=== PATIENT | male | born 1940 | race Caucasian/White ===

== ENCOUNTER 2016-06-15 00:11 | Emergency (ER) | payer MEDICARE, MEDICAID ==
[~2016-06-15 00:11] MED LIST: *MAYHAVE; *NEBULIZER; /ADVA50050; /ATOR40TA; /LANS30GR; /SUCR1TA; ACTO45TA; ACTOS30 PO; ACTOS45 PO; ADV500INH INH; ADVA115A INH; ADVAIR200 INHALATION; ADVAIR500; ALBOTERNEB INHALATION; ALBU/IPRAT INHALATION; ALBU83IN INH; ALBUT0.05 INHALATION; ALBUTEROL INHALATION; ALCOHOL TOP; ALDA25TA2 PO; ALTA1CAP2 PO; AMAR1TAB PO; AMBI10TA PO; AMBIEN10 PO; AMBIEN5 PO; AMBIENCR12 PO; AMLO10TA; AMLO10TA PO; AMO500 PO; ASP81; ASPI1TAB PO; ASPI81CH PO; ASTELIN NASAL; ATEN50TA2 PO; ATENOLOL50; ATENOLOL50 PO; ATOR40TA PO; AUGXR10 PO; AVAPRO75 PO; AVELOX PO; AZELASTINE; BABY81CH; BACTRIMDS PO; CAHNTIXC PO; CARAFATE1 PO; CELEBRE100 PO; CELEBRE200 PO; CHAN0.5P PO; CIPR500T89 PO; CIPRO500 PO; CLARITIN10 PO; CLOB-25 EXT; COLA100C PO; COLACE; COMBIVENT PO; DARVOCET-N PO; DRIS50002 PO; DUO INH; FERROUS325; FERRPOW60 PO; FLAG500T PO; FLEXERIL10 PO; FLON0.054; FLONASESPR NASAL; GLUCOSE TEST; GLYCOLAX PO; HABITROL21 TOPICAL; LANCMIS; LANO0.1211 PO; LASI40TA PO; LEVAQUI500 PO; LIPI20TA PO; LIPITOR40 PO; LODINE500 PO; M-VI27TA PO; METF500T PO; MIRA3350 PO; MUCI600T34 PO; MULTCAP PO; MULTIVIT; NAPROSY500 PO; NASACORTAQ NASALLY; NEBUMIS2; NORCOTAB PO; NORVASC10 PO; OCEA0.654; OCEAN NASAL SPRAY; OMEPRAZ20 PO; OMNICEF300 PO; PACE200T PO; PERC5TAB6 PO; PLAV75TA PO; PLAV75TA2; PLAVIX75 PO; PRAD150C PO; PREVACID30 PO; PREVMIS PO; PRILOSEC20 PO; PRILOSEC40 PO; PROC2.5C PR; PROCARDI PO; PROCTOFOAM RECTALLY; PROT1TAB2 PO; PROTPAK PO; QUININE325 PO; REGL10TA6 PO; ROBITUSSIN PO; SITA50TAB PO; TENO50TA; TEQUIN400 PO; TESSALO100 PO; TYLE167L PO; TYLE325T5 PO; VERELAN PO; VICO5TAB16 PO; VICODIN PO; VICODIN-ES PO; VITA10002 PO; VYTORIN40 PO; WELLBSR150 PO; XANA0.25; XANA0.5T PO; XANAX0.25 PO; XARE20TA PO; XOPENEX125 NEB; ZANT1TAB PO; ZEBE5TAB PO; ZEST10TA5 PO; ZETI10TA; ZETI10TA2 PO; ZETIA PO; ZOFR20TA PO; [UNRECOGNIZED DRUG - CODE] PO; [UNRECOGNIZED DRUG - CODE] PO; [UNRECOGNIZED DRUG - CODE] PO; [UNRECOGNIZED DRUG - OTHER]; [UNRECOGNIZED DRUG - OTHER]; [UNRECOGNIZED DRUG - OTHER]; [UNRECOGNIZED DRUG - SUPPLY]; oxygen
[2016-06-15] MEDS ORDERED: guaiFENesin DM LIQ 10ML UD As Ordered ONE (01:54)
--- NOTE | 2016-06-15 02:40 | EDDOCDS ---
Physician Documentation [facility] Name: Dimas Leal Age: 75 yrs Sex: Male : 1940 Arrival Date: 06/15/2016 Time: 00:11 Bed 17 Private MD: Disposition: 06/15/16 02:12 Discharged to Home/Self Care. Impression: Unspecified abdominal hernia without obstruction or gangrene, Acute bronchitis. - Condition is Stable. - Prescriptions for Zithromax Z- Hong 250 mg Oral Tablet - take 1 tablet by ORAL route as directed for 5 days Day 1- take two tablets once. Day 2, 3, 4 , 5 take one tablet once daily.; 6 tablet. Prednisone 20 mg Oral Tablet - take 2 tablet by ORAL route once daily for 5 days; 10 tablet. - Medication Reconciliation, Local Pharmacy Hours form. - Follow up: Lexx Saha MD; When: Call to arrange an appointment; Reason: Recheck today's complaints. - Problem is an ongoing problem. - Symptoms have improved. Historical: - Allergies: Ciprofloxacin; Ambien; - Home Meds: 1. aspirin 81 mg Oral cpDR daily (Last dose: 06/14/2016) 2. Protonix 40 mg oral TbEC once daily 3. Zetia 10 mg Oral tab once daily 4. Colace 100 mg oral cap 2 caps 2 times per day 5. Amaryl 4 mg Oral tab twice a day 6. Enalapril Unknown Oral once daily 7. Januvia oral Unknown oral once daily 8. gabapentin 100 mg Oral tab three times a day 9. Lipitor Unknown Oral once daily 10. Ranitidine Unknown Oral 11. Reglan Oral as needed 12. Zofran ODT 4 mg oral TbDL as needed 13. Advair Diskus Inhl 14. hydrocodone-acetaminophen 5-325 mg Oral tab twice a day as needed 15. Xanax Oral as needed 16. Vitamin B-12 Oral daily 17. Vitamin D 50,000 units every other week Oral 18. 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 No barriers to communication noted, The patient speaks fluent Turkish, Speaks appropriately for age. - Family history: Not pertinent. - : The pt / caregiver states he / she is not on anticoagulants. Home medication list is obtained from family members. - Exposure Risk Screening:: None identified. Vital Signs: 06/15 00:15 BP 204 / 93; Pulse 86; Resp 20; Temp 98.3(O); Pulse Ox 91% on R/A; Weight 108.86 kg / ead 240 lbs; Height 5 ft. 10 in. (177.80 cm) (R); Pain 0/10; 00:15 BP 198 / 92 (man/); ead 00:37 BP 186 / 85 (auto/); jp6 00:37 Pulse Ox 93% ; jp6 01:00 BP 161 / 70 (auto/); sls1 01:00 Pulse Ox 94% ; sls1 01:27 Pulse Ox 94% ; sls1 01:30 BP 144 / 67 (auto/); sls1 01:59 Pulse Ox 94% ; sls1 02:00 BP 136 / 69 (auto/); sls1 02:29 Pulse 82; Resp 22; Pulse Ox 94% on 2 lpm NC; Pain 0/10; sls1 02:30 BP 148 / 71 (auto/); sls1 00:15 Body Mass Index 34.44 (108.86 kg, 177.80 cm) ead MDM: 01:27 Chest, 2 View (pa\E\lat) Ordered. EDLA 01:29 Financial registration complete. [facility] 01:46 [place] Payment Agreement was scanned into [employer] and attached to record. [facility] 01:48 Dextromethorphan-Guaifenesin Liquid 10 mg-100 mg/5 mL 10 ml PO once ordered. cs11 Administered Medications: 01:57 Drug: Dextromethorphan-Guaifenesin 10 ml [dextromethorphan-guaifenesin 10 mg-100 mg/5 nn1 mL oral liquid (10 mL)] Route: PO; Signatures: Dispatcher [employer] EDMS Khadijah Geiger RN RN sls1 Manas Malone DO DO cs11 Galina Love RN RN ead Hook, Sandra Sharmin Tijerina RN RN jp6 Diana Horton RN nn1 The chart was reviewed and I authenticate all verbal orders and agree with the evaluation and treatment provided.Attachments: 01:46 [facility] Payment Agreement [facility] MTDD
--- NOTE | 2016-06-15 02:40 | EDDOCDS ---
Nurse's Notes [facility] Name: Dimas Leal Age: 75 yrs Sex: Male : 1940 Arrival Date: 06/15/2016 Time: 00:11 Bed 17 Private MD: Diagnosis: Unspecified abdominal hernia without obstruction or gangrene;Acute bronchitis Presentation: 06/15 00:15 Presenting complaint: Patient states: hernia repair two years ago. "I think I have a ead new hernia." Reports bulge at belly button, first noticed two days ago. Reports n/v. 00:20 Adult Sepsis Screening: The patient does not have new or worsening altered mentation. ead Patient's respiratory rate is less than 22. Systolic blood pressure is greater than 100. Patient has a qSOFA score of 0- Negative Sepsis Screen. Suicide/Homicide risk assessment- the patient denies having any suicidal and/or homicidal ideations and does not present with any other emotional, behavioral or mental health complaints. 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 Transition of care: patient was not received from another setting of care. 00:20 Acuity: WILMA Level 3 ead 00:20 Method Of Arrival: Walkin/Carried/Asstd ead 00:28 Presenting complaint: Patient states: pt also now reporting productive cough. reports ead increased abdominal pain with cough. Triage Assessment: 00:26 General: Appears in no apparent distress, Behavior is cooperative. Pain: Location: ead abdomen Pain currently is 6 out of 10 on a pain scale. Neurological: Level of Consciousness is awake, alert, Oriented to person, place, time. Respiratory: Airway is patent Respiratory effort is even, unlabored, Reports cough that is. GI: Reports lower abdominal pain, nausea, vomiting. Derm: Skin is pink, warm & dry. Historical: - Allergies: Ciprofloxacin; Ambien; - Home Meds: 1. aspirin 81 mg Oral cpDR daily (Last dose: 06/14/2016) 2. Protonix 40 mg oral TbEC once daily 3. Zetia 10 mg Oral tab once daily 4. Colace 100 mg oral cap 2 caps 2 times per day 5. Amaryl 4 mg Oral tab twice a day 6. Enalapril Unknown Oral once daily 7. Januvia oral Unknown oral once daily 8. gabapentin 100 mg Oral tab three times a day 9. Lipitor Unknown Oral once daily 10. Ranitidine Unknown Oral 11. Reglan Oral as needed 12. Zofran ODT 4 mg oral TbDL as needed 13. Advair Diskus Inhl 14. hydrocodone-acetaminophen 5-325 mg Oral tab twice a day as needed 15. Xanax Oral as needed 16. Vitamin B-12 Oral daily 17. Vitamin D 50,000 units every other week Oral 18. 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 No barriers to communication noted, The patient speaks fluent Hebrew, Speaks appropriately for age. - Family history: Not pertinent. - : The pt / caregiver states he / she is not on anticoagulants. Home medication list is obtained from family members. - Exposure Risk Screening:: None identified. Screenin:37 Screening information is obtained from the patient. Fall risk: At risk due to age. sls1 Assistance ADL's: requires no assistance with activities of daily living. Abuse/DV Screen: The patient / caregiver reports he/she is: not in a situation that causes fear, pain or injury. Nutritional screening: On diabetic diet. Advance Directives: Further advance directive information is declined. home support is adequate. Assessment: 00:51 Reassessment: Patient states symptoms have not improved. General: Appears distressed, jp6 uncomfortable, Behavior is appropriate for age, cooperative. Pain: Location: abdomen Pain currently is 6 out of 10 on a pain scale. Neurological: No deficits noted. EENT: No deficits noted. Cardiovascular: Capillary refill < 3 seconds. Respiratory: Airway is patent Respiratory effort is even, unlabored, Respiratory pattern is regular, symmetrical, Breath sounds with rhonchi inspiratory expiratory Breath sounds with wheezes. GI: Abdomen is distended, Bowel sounds hypoactive in right upper quadrant, left upper quadrant, right lower quadrant and left lower quadrant Reports ' I think I have another hernia". : No deficits noted. Derm: Skin is pink, warm & dry. Musculoskeletal: No deficits noted. 02:37 General: Appears in no apparent distress, Behavior is appropriate for age, cooperative, sls1 Discharge instructions reviewed with pt and family including follow up care, and medication use. Pt and family verbalize understanding of all instructions, pt d/c home with family and belongings. Pain: Denies pain. Neurological: Level of Consciousness is awake, alert. Respiratory: Airway is patent Respiratory effort is even, unlabored, Respiratory pattern is regular, symmetrical. Derm: No deficits noted. Vital Signs: 00:15 BP 204 / 93; Pulse 86; Resp 20; Temp 98.3(O); Pulse Ox 91% on R/A; Weight 108.86 kg; ead Height 5 ft. 10 in. (177.80 cm) (R); Pain 0/10; 00:15 BP 198 / 92 (man/); ead 00:37 BP 186 / 85 (auto/); jp6 00:37 Pulse Ox 93% ; jp6 01:00 BP 161 / 70 (auto/); sls1 01:00 Pulse Ox 94% ; sls1 01:27 Pulse Ox 94% ; sls1 01:30 BP 144 / 67 (auto/); sls1 01:59 Pulse Ox 94% ; sls1 02:00 BP 136 / 69 (auto/); sls1 02:29 Pulse 82; Resp 22; Pulse Ox 94% on 2 lpm NC; Pain 0/10; sls1 02:30 BP 148 / 71 (auto/); sls1 00:15 Body Mass Index 34.44 (108.86 kg, 177.80 cm) ead Vitals: 00:15 Log In Time: June 15, 2016 at 00:11. ead ED Course: 00:13 Patient visited by Leonora Byers Reg. hs2 00:13 Patient moved to Waiting hs2 00:21 Triage Initiated ead 00:28 Patient moved to 17 ead 00:32 Sharmin Pressley,RN is Primary Nurse. jp6 01:13 Patient visited by Sharmin Pressley RN. jp6 01:17 Manas Malone DO is Attending Physician. cs11 01:17 Patient visited by Manas Malone DO. cs11 01:46 [facility] Payment Agreement was scanned into [employer] and attached to record. [facility] 02:10 Lexx Saha MD is Referral Physician. cs11 02:37 The patient / caregiver is instructed regarding the plan of care and ED course. Patient steph has correct armband on for positive identification. Placed in gown. Bed in low position. Call light in reach. Side rails up X 1. 02:37 No IV's were initiated during this patient's visit. No procedures done that require sls1 assistance. Administered Medications: 01:57 Drug: Dextromethorphan-Guaifenesin 10 ml [dextromethorphan-guaifenesin 10 mg-100 mg/5 nn1 mL oral liquid (10 mL)] Route: PO; Order Results: There are currently no results for this order. Outcome: 02:12 Discharge ordered by Provider. cs11 02:37 Discharge Assessment: Patient awake, alert and oriented x 3. No cognitive and/or sls1 functional deficits noted. Patient verbalized understanding of disposition instructions. patient administered narcotics - no. The following High Risk Discharge criteria are identified: None. Discharged to home ambulatory, with family. Condition: stable. Discharge instructions given to patient, Instructed on discharge instructions, follow up and referral plans. medication usage, Demonstrated understanding of instructions, medications, Pt was receptive of discharge instructions/ teaching. CT Study completed. Property sent home with patient. 02:40 Patient left the ED. sls1 Signatures: Khadijah Geiger, RN RN sls1 Manas Malone, DO DO cs11 Galina Love,RN RN Yamilex Barahona Nikkole,RN RN nn1 Leonora Byers, Reg Reg hs2 Sharmin Pressley,RN RN jp6 MTDD
--- NOTE | 2016-06-15 05:27 | REP ---
Clinical: Cough. Technique: PA and lateral. Comparison: 10/20/2014. Findings: Lateral view best demonstrates right middle lobe atelectasis. Underlying chronic changes are appreciated and remains stable. Mediastinum and cardiac silhouette demonstrate prior sternotomy and CABG with mild cardiomegaly. No definite effusion. No pneumothorax. Skeletal structures stable. Impression: Right middle lobe atelectasis suggested. Signed by Julio C Berry MD 06/15/2016 05:19 A
--- NOTE | 2016-06-17 03:41 | EDDOCDS ---
Physician Documentation [facility] Name: Dimas Leal Age: 75 yrs Sex: Male : 1940 Arrival Date: 06/15/2016 Time: 00:11 Bed 17 Private MD: Disposition: 06/15/16 02:12 Discharged to Home/Self Care. Impression: Unspecified abdominal hernia without obstruction or gangrene, Acute bronchitis. - Condition is Stable. - Prescriptions for Zithromax Z- Hong 250 mg Oral Tablet - take 1 tablet by ORAL route as directed for 5 days Day 1- take two tablets once. Day 2, 3, 4 , 5 take one tablet once daily.; 6 tablet. Prednisone 20 mg Oral Tablet - take 2 tablet by ORAL route once daily for 5 days; 10 tablet. - Medication Reconciliation, Local Pharmacy Hours form. - Follow up: Lexx Saha MD; When: Call to arrange an appointment; Reason: Recheck today's complaints. - Problem is an ongoing problem. - Symptoms have improved. Historical: - Allergies: Ciprofloxacin; Ambien; - Home Meds: 1. aspirin 81 mg Oral cpDR daily (Last dose: 06/14/2016) 2. Protonix 40 mg oral TbEC once daily 3. Zetia 10 mg Oral tab once daily 4. Colace 100 mg oral cap 2 caps 2 times per day 5. Amaryl 4 mg Oral tab twice a day 6. Enalapril Unknown Oral once daily 7. Januvia oral Unknown oral once daily 8. gabapentin 100 mg Oral tab three times a day 9. Lipitor Unknown Oral once daily 10. Ranitidine Unknown Oral 11. Reglan Oral as needed 12. Zofran ODT 4 mg oral TbDL as needed 13. Advair Diskus Inhl 14. hydrocodone-acetaminophen 5-325 mg Oral tab twice a day as needed 15. Xanax Oral as needed 16. Vitamin B-12 Oral daily 17. Vitamin D 50,000 units every other week Oral 18. 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 No barriers to communication noted, The patient speaks fluent Syriac, Speaks appropriately for age. - Family history: Not pertinent. - : The pt / caregiver states he / she is not on anticoagulants. Home medication list is obtained from family members. - Exposure Risk Screening:: None identified. Vital Signs: 06/15 00:15 BP 204 / 93; Pulse 86; Resp 20; Temp 98.3(O); Pulse Ox 91% on R/A; Weight 108.86 kg / ead 240 lbs; Height 5 ft. 10 in. (177.80 cm) (R); Pain 0/10; 00:15 BP 198 / 92 (man/); ead 00:37 BP 186 / 85 (auto/); jp6 00:37 Pulse Ox 93% ; jp6 01:00 BP 161 / 70 (auto/); sls1 01:00 Pulse Ox 94% ; sls1 01:27 Pulse Ox 94% ; sls1 01:30 BP 144 / 67 (auto/); sls1 01:59 Pulse Ox 94% ; sls1 02:00 BP 136 / 69 (auto/); sls1 02:29 Pulse 82; Resp 22; Pulse Ox 94% on 2 lpm NC; Pain 0/10; sls1 02:30 BP 148 / 71 (auto/); sls1 00:15 Body Mass Index 34.44 (108.86 kg, 177.80 cm) ead MDM: 01:27 Chest, 2 View (pa\E\lat) Ordered. EDMO 01:29 Financial registration complete. [facility] 01:[address] [facility] Payment Agreement was scanned into [employer] and attached to record. [facility] 01:48 Dextromethorphan-Guaifenesin Liquid 10 mg-100 mg/5 mL 10 ml PO once ordered. [facility] 06/16 07:01 T-Sheet-- Draft Copy was scanned into [employer] and attached to record. gb Administered Medications: 06/15 01:57 Drug: Dextromethorphan-Guaifenesin 10 ml [dextromethorphan-guaifenesin 10 mg-100 mg/5 nn1 mL oral liquid (10 mL)] Route: PO; Signatures: Dispatcher [employer] EDMO Ethel Cash, Reg Reg gb Khadijah Geiger RN RN [facility]1 Manas Malone DO DO [facility] Galina Love RN RN ead Hook, Sandra [facility] Sharmin Pressley,RN RN jp6 Diana Horton RN nn1 The chart was reviewed and I authenticate all verbal orders and agree with the evaluation and treatment provided.Attachments: 01:46 [facility] Payment Agreement [facility] 06/16 07:01 T-Sheet-- Draft Copy gb Chart Complete [place]
--- NOTE | 2016-06-17 03:41 | EDDOCDS ---
Physician Documentation [facility] Name: Dimas Leal Age: 75 yrs Sex: Male : 1940 Arrival Date: 06/15/2016 Time: 00:11 Bed 17 Private MD: Disposition: 06/15/16 02:12 Discharged to Home/Self Care. Impression: Unspecified abdominal hernia without obstruction or gangrene, Acute bronchitis. - Condition is Stable. - Prescriptions for Zithromax Z- Hong 250 mg Oral Tablet - take 1 tablet by ORAL route as directed for 5 days Day 1- take two tablets once. Day 2, 3, 4 , 5 take one tablet once daily.; 6 tablet. Prednisone 20 mg Oral Tablet - take 2 tablet by ORAL route once daily for 5 days; 10 tablet. - Medication Reconciliation, Local Pharmacy Hours form. - Follow up: Lexx Saha MD; When: Call to arrange an appointment; Reason: Recheck today's complaints. - Problem is an ongoing problem. - Symptoms have improved. Historical: - Allergies: Ciprofloxacin; Ambien; - Home Meds: 1. aspirin 81 mg Oral cpDR daily (Last dose: 06/14/2016) 2. Protonix 40 mg oral TbEC once daily 3. Zetia 10 mg Oral tab once daily 4. Colace 100 mg oral cap 2 caps 2 times per day 5. Amaryl 4 mg Oral tab twice a day 6. Enalapril Unknown Oral once daily 7. Januvia oral Unknown oral once daily 8. gabapentin 100 mg Oral tab three times a day 9. Lipitor Unknown Oral once daily 10. Ranitidine Unknown Oral 11. Reglan Oral as needed 12. Zofran ODT 4 mg oral TbDL as needed 13. Advair Diskus Inhl 14. hydrocodone-acetaminophen 5-325 mg Oral tab twice a day as needed 15. Xanax Oral as needed 16. Vitamin B-12 Oral daily 17. Vitamin D 50,000 units every other week Oral 18. 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 No barriers to communication noted, The patient speaks fluent Syriac, Speaks appropriately for age. - Family history: Not pertinent. - : The pt / caregiver states he / she is not on anticoagulants. Home medication list is obtained from family members. - Exposure Risk Screening:: None identified. Vital Signs: 06/15 00:15 BP 204 / 93; Pulse 86; Resp 20; Temp 98.3(O); Pulse Ox 91% on R/A; Weight 108.86 kg / ead 240 lbs; Height 5 ft. 10 in. (177.80 cm) (R); Pain 0/10; 00:15 BP 198 / 92 (man/); ead 00:37 BP 186 / 85 (auto/); jp6 00:37 Pulse Ox 93% ; jp6 01:00 BP 161 / 70 (auto/); sls1 01:00 Pulse Ox 94% ; sls1 01:27 Pulse Ox 94% ; sls1 01:30 BP 144 / 67 (auto/); sls1 01:59 Pulse Ox 94% ; sls1 02:00 BP 136 / 69 (auto/); sls1 02:29 Pulse 82; Resp 22; Pulse Ox 94% on 2 lpm NC; Pain 0/10; sls1 02:30 BP 148 / 71 (auto/); sls1 00:15 Body Mass Index 34.44 (108.86 kg, 177.80 cm) ead MDM: 01:27 Chest, 2 View (pa\E\lat) Ordered. EDLA 01:29 Financial registration complete. [facility] 01:46 [place] Payment Agreement was scanned into [employer] and attached to record. [facility] 01:48 Dextromethorphan-Guaifenesin Liquid 10 mg-100 mg/5 mL 10 ml PO once ordered. [facility] 06/16 07:01 T-Sheet-- Draft Copy was scanned into [employer] and attached to record. gb Administered Medications: 06/15 01:57 Drug: Dextromethorphan-Guaifenesin 10 ml [dextromethorphan-guaifenesin 10 mg-100 mg/5 nn1 mL oral liquid (10 mL)] Route: PO; Signatures: Dispatcher [employer] EDLA Ethel Cash, Reg Reg gb Khadijah Geiger RN RN [facility] Manas Malone DO DO [facility] Galina Love RN RN ead Hook, Sandra [facility] Sharmin Pressley,RN RN jp6 Diana Horton RN nn1 The chart was reviewed and I authenticate all verbal orders and agree with the evaluation and treatment provided.Attachments: 01:46 [facility] Payment Agreement [facility] 06/16 07:01 T-Sheet-- Draft Copy gb Chart Complete [place]
--- NOTE | 2016-06-17 03:41 | EDDOCDS ---
Nurse's Notes [facility] Name: Dimas Leal Age: 75 yrs Sex: Male : 1940 Arrival Date: 06/15/2016 Time: 00:11 Bed 17 Private MD: Diagnosis: Unspecified abdominal hernia without obstruction or gangrene;Acute bronchitis Presentation: 06/15 00:15 Presenting complaint: Patient states: hernia repair two years ago. "I think I have a ead new hernia." Reports bulge at belly button, first noticed two days ago. Reports n/v. 00:20 Adult Sepsis Screening: The patient does not have new or worsening altered mentation. ead Patient's respiratory rate is less than 22. Systolic blood pressure is greater than 100. Patient has a qSOFA score of 0- Negative Sepsis Screen. Suicide/Homicide risk assessment- the patient denies having any suicidal and/or homicidal ideations and does not present with any other emotional, behavioral or mental health complaints. 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 Transition of care: patient was not received from another setting of care. 00:20 Acuity: WILMA Level 3 ead 00:20 Method Of Arrival: Walkin/Carried/Asstd ead 00:28 Presenting complaint: Patient states: pt also now reporting productive cough. reports ead increased abdominal pain with cough. Triage Assessment: 00:26 General: Appears in no apparent distress, Behavior is cooperative. Pain: Location: ead abdomen Pain currently is 6 out of 10 on a pain scale. Neurological: Level of Consciousness is awake, alert, Oriented to person, place, time. Respiratory: Airway is patent Respiratory effort is even, unlabored, Reports cough that is. GI: Reports lower abdominal pain, nausea, vomiting. Derm: Skin is pink, warm & dry. Historical: - Allergies: Ciprofloxacin; Ambien; - Home Meds: 1. aspirin 81 mg Oral cpDR daily (Last dose: 06/14/2016) 2. Protonix 40 mg oral TbEC once daily 3. Zetia 10 mg Oral tab once daily 4. Colace 100 mg oral cap 2 caps 2 times per day 5. Amaryl 4 mg Oral tab twice a day 6. Enalapril Unknown Oral once daily 7. Januvia oral Unknown oral once daily 8. gabapentin 100 mg Oral tab three times a day 9. Lipitor Unknown Oral once daily 10. Ranitidine Unknown Oral 11. Reglan Oral as needed 12. Zofran ODT 4 mg oral TbDL as needed 13. Advair Diskus Inhl 14. hydrocodone-acetaminophen 5-325 mg Oral tab twice a day as needed 15. Xanax Oral as needed 16. Vitamin B-12 Oral daily 17. Vitamin D 50,000 units every other week Oral 18. 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 No barriers to communication noted, The patient speaks fluent [place], Speaks appropriately for age. - Family history: Not pertinent. - : The pt / caregiver states he / she is not on anticoagulants. Home medication list is obtained from family members. - Exposure Risk Screening:: None identified. Screenin:37 Screening information is obtained from the patient. Fall risk: At risk due to age. sls1 Assistance ADL's: requires no assistance with activities of daily living. Abuse/DV Screen: The patient / caregiver reports he/she is: not in a situation that causes fear, pain or injury. Nutritional screening: On diabetic diet. Advance Directives: Further advance directive information is declined. home support is adequate. Assessment: 00:51 Reassessment: Patient states symptoms have not improved. General: Appears distressed, jp6 uncomfortable, Behavior is appropriate for age, cooperative. Pain: Location: abdomen Pain currently is 6 out of 10 on a pain scale. Neurological: No deficits noted. EENT: No deficits noted. Cardiovascular: Capillary refill < 3 seconds. Respiratory: Airway is patent Respiratory effort is even, unlabored, Respiratory pattern is regular, symmetrical, Breath sounds with rhonchi inspiratory expiratory Breath sounds with wheezes. GI: Abdomen is distended, Bowel sounds hypoactive in right upper quadrant, left upper quadrant, right lower quadrant and left lower quadrant Reports ' I think I have another hernia". : No deficits noted. Derm: Skin is pink, warm & dry. Musculoskeletal: No deficits noted. 02:37 General: Appears in no apparent distress, Behavior is appropriate for age, cooperative, sls1 Discharge instructions reviewed with pt and family including follow up care, and medication use. Pt and family verbalize understanding of all instructions, pt d/c home with family and belongings. Pain: Denies pain. Neurological: Level of Consciousness is awake, alert. Respiratory: Airway is patent Respiratory effort is even, unlabored, Respiratory pattern is regular, symmetrical. Derm: No deficits noted. Vital Signs: 00:15 BP 204 / 93; Pulse 86; Resp 20; Temp 98.3(O); Pulse Ox 91% on R/A; Weight 108.86 kg; ead Height 5 ft. 10 in. (177.80 cm) (R); Pain 0/10; 00:15 BP 198 / 92 (man/); ead 00:37 BP 186 / 85 (auto/); jp6 00:37 Pulse Ox 93% ; jp6 01:00 BP 161 / 70 (auto/); sls1 01:00 Pulse Ox 94% ; sls1 01:27 Pulse Ox 94% ; sls1 01:30 BP 144 / 67 (auto/); sls1 01:59 Pulse Ox 94% ; sls1 02:00 BP 136 / 69 (auto/); sls1 02:29 Pulse 82; Resp 22; Pulse Ox 94% on 2 lpm NC; Pain 0/10; sls1 02:30 BP 148 / 71 (auto/); sls1 00:15 Body Mass Index 34.44 (108.86 kg, 177.80 cm) ead Vitals: 00:15 Log In Time: June 15, 2016 at 00:11. ead ED Course: 00:13 Patient visited by Leonora Byers Reg. hs2 00:13 Patient moved to Waiting hs2 00:21 Triage Initiated ead 00:28 Patient moved to 17 ead 00:32 Sharmin Pressley,RN is Primary Nurse. jp6 01:13 Patient visited by Sharmin Pressley RN. jp6 01:17 Manas Malone DO is Attending Physician. cs11 01:17 Patient visited by Manas Malone DO. cs11 01:46 [facility] Payment Agreement was scanned into [facility] and attached to record. [facility] 02:10 Lexx Saha MD is Referral Physician. cs11 02:37 The patient / caregiver is instructed regarding the plan of care and ED course. Patient steph has correct armband on for positive identification. Placed in gown. Bed in low position. Call light in reach. Side rails up X 1. 02:37 No IV's were initiated during this patient's visit. No procedures done that require sls1 assistance. 05:54 Chest, 2 View (pa\\E\\lat) Returned. [facility] 06/16 07:01 T-Sheet-- Draft Copy was scanned into STWA and attached to record. gb Administered Medications: 06/15 01:57 Drug: Dextromethorphan-Guaifenesin 10 ml [dextromethorphan-guaifenesin 10 mg-100 mg/5 nn1 mL oral liquid (10 mL)] Route: PO; Order Results: Radiology Order: Chest, 2 View (pa\\E\\lat) Test: Chest, 2 View (pa\\E\\lat) REASON FOR EXAMINATION: Cough; Clinical: Cough.; ; Technique: PA and lateral.; ; Comparison: 10/20/2014.; ; Findings:; Lateral view best demonstrates right middle lobe atelectasis. Underlying chronic; changes are appreciated and remains stable. Mediastinum and cardiac silhouette; demonstrate prior sternotomy and CABG with mild cardiomegaly. No definite; effusion. No pneumothorax. Skeletal structures stable.; ; Impression: Right middle lobe atelectasis suggested.; ; ; Signed by; Julio C Berry MD 06/15/2016 05:19 A; Outcome: 02:12 Discharge ordered by Provider. cs11 02:37 Discharge Assessment: Patient awake, alert and oriented x 3. No cognitive and/or sls1 functional deficits noted. Patient verbalized understanding of disposition instructions. patient administered narcotics - no. The following High Risk Discharge criteria are identified: None. Discharged to home ambulatory, with family. Condition: stable. Discharge instructions given to patient, Instructed on discharge instructions, follow up and referral plans. medication usage, Demonstrated understanding of instructions, medications, Pt was receptive of discharge instructions/ teaching. CT Study completed. Property sent home with patient. 02:40 Patient left the ED. sls1 Signatures: [facility] E[facility] Cash, Reg Reg Khadijah Sheppard RN RN sls1 Manas Malone DO DO cs11 Galina LoveRN Yamilex Cardenas Nikkole, RN RN nn1 Leonora Byers, Reg Reg hs2 Sharmin Pressley,RN RN jp6 Chart Complete MTDD
== END 2016-06-15 02:40 | disposition home or self-care (01) ==
LOC: M ED 00:11
DX: J44.0 Chronic obstructive pulmonary disease with (acute) lower respiratory infection (principal); K43.9 Ventral hernia without obstruction or gangrene; I10 Essential (primary) hypertension; I25.10 Atherosclerotic heart disease of native coronary artery without angina pectoris; E10.9 Type 1 diabetes mellitus without complications; I51.7 Cardiomegaly; Z90.49 Acquired absence of other specified parts of digestive tract; Z95.1 Presence of aortocoronary bypass graft; Z87.891 Personal history of nicotine dependence; Z79.82 Long term (current) use of aspirin; Z79.899 Other long term (current) drug therapy; Z88.1 Allergy status to other antibiotic agents; Z88.8 Allergy status to other drugs, medicaments and biological substances

== ENCOUNTER → 2016-07-03 | Outpatient (REF) | payer MEDICARE, MEDICAID ==
[~2016-07-03] MED LIST changes: -PLAV75TA PO; +PLAV75TA38 PO
[2016-07-03 10:10] LABS: BASO % 0.4 % (0.0-1.0); EOS # 0.2 K/mm3 (0.0-0.50); EOS % 2.5 % (0.0-3.0); LARGE UNSTAINED CELL # 0.3 K/mm3 (0.0-0.4); LARGE UNSTAINED CELL % 3.3 % (0.0-4.0); LYMPH # 1.6 K/mm3 (1.5-4.5); LYMPH % 20.5 % (24.0-44.0); MEAN CORPUSCULAR HEMOGLOBIN 27.2 pg (27.0-33.0); MEAN CORPUSCULAR HGB CONC 31.7 g/dl (32.0-36.5); MONO # 0.3 K/mm3 (0.0-0.8); MONO % 4.2 % (0.0-5.0); NEUTROPHILS # 5.3 K/mm3 (1.8-7.7); NEUTROPHILS % 69.2 % (36.0-66.0); PLATELET COUNT, AUTOMATED 235 k/mm3 (150-450); RED CELL DISTRIBUTION WIDTH 15.4 % (11.5-14.5); WHITE BLOOD COUNT 7.6 K/mm3 (4.0-10.0)
[2016-07-03 11:31] LABS: ALBUMIN 3.5 GM/DL (3.2-5.2); BILIRUBIN,TOTAL 0.4 MG/DL (0.2-1.0); CALCIUM LEVEL 8.8 MG/DL (8.8-10.2); CREATININE FOR GFR 1.44 MG/DL (0.70-1.30); FREE T4 0.92 NG/DL (0.76-1.46); GLOMERULAR FILTRATION RATE 50.9 (>42); PERCENT SATURATION 15.5 % (19.7-37.4)
[2016-07-03 11:35] LABS: POTASSIUM SERUM 5.5 MEQ/L (3.5-5.1)
== END ==
LOC: M LABDRAW1 09:26
PROVIDERS: ATTEND Family Medicine
DX: D50.9 Iron deficiency anemia, unspecified (principal); E11.9 Type 2 diabetes mellitus without complications

== ENCOUNTER → 2016-11-03 | Outpatient (REF) | payer MEDICARE, MEDICAID ==
[~2016-11-03] MED LIST changes: -COLA100C PO; +COLA100C3 PO
== END ==
LOC: M SFHCPLAZ 17:08
PROVIDERS: ATTEND Family Medicine
DX: J44.9 Chronic obstructive pulmonary disease, unspecified (principal)

== ENCOUNTER → 2016-11-09 | Outpatient (CLI) | payer MEDICARE, MEDICAID ==
--- NOTE | 2016-11-09 09:38 | REP ---
REASON: Followup abdominal aortic aneurysm. COMPARISON: 03/03/2016. Abdominal aortic ultrasonography was performed in the same fashion as the prior exam. Once again, the examination is limited secondary to the same factors as what limited the prior exam being patient body habitus and intestinal gas pattern. The prior examination showed an enlarging abdominal aortic aneurysm with a maximal AP dimension of 4.9 cm and a maximal length of 5.3 cm. Today's examination shows an abdominal aortic aneurysm measuring 5.1 cm in its greater AP dimension as measured in the longitudinal scan plane with a length of 6.3 cm. The common iliac arteries could not be assessed due to the patient's intestinal gas pattern. IMPRESSION: There is an enlarging abdominal aortic aneurysm, as described above, which has increased 2 mm in size in its AP dimension and 1 cm in length. Signed by Kedar Ruiz DO 11/09/2016 10:14 A
== END ==
LOC: M RAD 07:44
PROVIDERS: ATTEND Family Medicine
DX: I71.4 Abdominal aortic aneurysm, without rupture (principal)

== ENCOUNTER → 2016-11-15 | Outpatient (CLI) | payer MEDICARE, MEDICAID ==
[~2016-11-15] MED LIST changes: +BISO10TA PO; +BISO5TAB5 PO; +FLON1SPR; +GABA-279 PO; +INSULANT SC; +NITR0.4S14 SL
[2016-11-15 10:18] LABS: MEAN CORPUSCULAR HGB CONC 31.6 g/dl (32.0-36.5); MEAN CORPUSCULAR VOLUME 85.4 fl (80.0-96.0); RED CELL DISTRIBUTION WIDTH 15.7 % (11.5-14.5); WHITE BLOOD COUNT 8.5 K/mm3 (4.0-10.0)
[2016-11-15 10:35] LABS: ALBUMIN 3.4 GM/DL (3.2-5.2); ALBUMIN/GLOBULIN RATIO 0.92 (1.00-1.93); BILIRUBIN,TOTAL 0.5 MG/DL (0.2-1.0); CALCIUM LEVEL 9.3 MG/DL (8.8-10.2); CREATININE FOR GFR 1.34 MG/DL (0.70-1.30); GLOMERULAR FILTRATION RATE 55.3 (>42); MAGNESIUM LEVEL 2.2 MG/DL (1.8-2.4); PERCENT SATURATION 17.1 % (19.7-37.4); POTASSIUM SERUM 4.4 MEQ/L (3.5-5.1); TOTAL PROTEIN 7.1 GM/DL (6.4-8.2)
[2016-11-15 10:46] LABS: BASOPHILS 1 % (0-4); EOSINOPHILS 2 % (0-5)
== END ==
LOC: M SMT 08:06
PROVIDERS: ATTEND Family Medicine
DX: E53.8 Deficiency of other specified B group vitamins (principal); N18.3 Chronic kidney disease, stage 3 (moderate); E11.9 Type 2 diabetes mellitus without complications

== ENCOUNTER → 2016-11-16 | Outpatient (REF) | payer MEDICARE, MEDICAID ==
[~2016-11-16] MED LIST changes: -ATOR40TA PO; +ATOR40TA75 PO; +CIPR-249 PO; -CIPR500T89 PO; -COLA100C3 PO; +COLA100C5 PO; -METF500T PO; +METF500T13 PO; -MUCI600T34 PO; +MUCI600T37 PO; +PERC5TAB12 PO; -PERC5TAB6 PO; +PLAV1TAB2 PO; -PLAV75TA38 PO; -ZETI10TA2 PO; +ZETI10TA30 PO
== END ==
LOC: M SFHCPLAZ 17:37
PROVIDERS: ATTEND Family Medicine
DX: E53.8 Deficiency of other specified B group vitamins (principal); J44.9 Chronic obstructive pulmonary disease, unspecified
CPT/HCPCS: 87070; 87077; 87186; 87205; G0463

== ENCOUNTER → 2016-11-20 | Outpatient (CLI) | payer MEDICARE, MEDICAID ==
[~2016-11-20] MED LIST changes: +ATOR40TA PO; -ATOR40TA75 PO; -CIPR-249 PO; +CIPR500T89 PO; +COLA100C3 PO; -COLA100C5 PO; +METF500T PO; -METF500T13 PO; +MUCI600T34 PO; -MUCI600T37 PO; -PERC5TAB12 PO; +PERC5TAB6 PO; -PLAV1TAB2 PO; +PLAV75TA38 PO; +ZETI10TA2 PO; -ZETI10TA30 PO
--- NOTE | 2016-11-20 14:01 | REP ---
MR LUMBAR SPINE WITHOUT CONTRAST: HISTORY: Back pain. Decreased signal intensity on T2-weighted images is present in the L2-3 through L5-S1 intervertebral discs. The L2-3 through L4-5 intervertebral discs are decreased in height. These findings are consistent with disc degeneration. There is no disc bulge or herniation at the L1-2, L2-3, and L5-S1 levels. There is hypertrophy of the posterior articulating facets at the L5-S1 level. The nerves exit the neural foramina without compression. A diffuse disc bulge is present at the L3-4 level. There is minimal compression of the thecal sac. There is hypertrophy of the posterior articulating facets. The L3 nerves exit the neural foramina without compression. A diffuse disc bulge is present at the L4-5 level. There is minimal compression of the thecal sac. There is hypertrophy of the posterior articulating facets. The L4 nerves exit the neural foramina without compression. The conus medullaris is normal in appearance terminating at the level of the T12-L1 intervertebral disc. Normal signal intensity is present in the lumbar vertebral bodies. An abdominal aortic aneurysm is present. The aneurysm measures 4.9 cm. IMPRESSION: 1. Diffuse disc bulges at the L3-4 and L4-5 level with minimal thecal sac compression. 2. 4.9 cm abdominal aortic aneurysm. Ultrasound may be helpful for further evaluation. Signed by Dank Berumen MD 11/20/2016 02:10 P
== END ==
LOC: M PLARAD 11:12
PROVIDERS: ATTEND Family Medicine
DX: M51.06 Intervertebral disc disorders with myelopathy, lumbar region (principal); I71.3 Abdominal aortic aneurysm, ruptured

== ENCOUNTER → 2016-11-29 | Day surgery (SDC) | payer MEDICARE, MEDICAID ==
[~2016-11-29] VITALS: Ht 175.3 cm; Wt 112.5 kg
[~2016-11-29] MED LIST changes: +ACETAMINOPHEN 325 MG TAB PO PRN; +ALBUTEROL SULFATE 2.5 MG/0.5 ML INH NEB SOLN As Ordered ONE; +ALBUTEROL SULFATE 2.5 MG/0.5 ML INH NEB SOLN INH ONE; +AcetaZOLAMIDE 500 MG ER CAP PO ONE; +BSS with VANC/TOB/EPI for EYE CASES IR ONE; +CYCLOPENTOLATE 2% OPHTH SOLN 2ML BTL OS ONE; +KETOROLAC 0.5% OPHTH SOLN OS ONE; +LABETALOL HCL 100 MG/20 ML VIAL As Ordered ONE; +LIDOCAINE 4% INJ 5 ML AMP OU ONE; +LR 500 ML IV ONE; +MIDAZOLAM INJ 2 MG/2 ML VIAL (J2250) As Ordered ONE; +OFLOXACIN 0.3 % (OCUFLOX) OPTH SOL 5ML OS ONE; +PHENYLEPHRINE 2.5% OPHTH SOL 2ML OS ONE; +PROPARACAINE 0.5% OPHTH SOL 15ML OS PRN; +TRIMETHOBENZAMIDE 300 MG CAP PO PRN; +TROPICAMIDE 1% OPHTH SOLN 2ML OS ONE
[2016-11-29 13:35] VITALS: BP 151/67
--- NOTE | 2016-12-05 20:58 | RO ---
DATE OF PROCEDURE: 11/29/2016 PREPROCEDURE DIAGNOSIS: Cataract left eye. POSTPROCEDURE DIAGNOSIS: Cataract left eye. PROCEDURE: Phacoemulsification with intraocular lens implantation with PCB00, power 19 diopters. SURGEON: Dr. Lynn Mtz MAC DEVELOPER: None. ANESTHESIA: COMPLICATIONS: None. DESCRIPTION OF PROCEDURE: The patient was brought to the operating room, laid in supine position, the eye was prepped and draped in a sterile fashion for ophthalmic surgery and a lid speculum was placed. Sideport incision was made and EndoCoat was injected into the anterior chamber. This was followed by temporal clear corneal incision which was made with a 2.5 mm keratome, followed by capsulorrhexis and hydrodissection. Phacoemulsification was carried out in divide and conquer method within the capsular bag followed by aspiration of the cortical material. Healon was placed in the capsular bag followed by insertion of the intraocular lens. Following this excess viscoelastic was aspirated. Sub-Tenon injection of Kenalog was given and intracameral injection of moxifloxacin was given. At the end of the case, the wound was hydrated. No leaks were noted. Lid speculum removed. The patient returned to the recovery room in stable condition.
== END | disposition home or self-care (01) ==
LOC: M SDC 10:58
PROVIDERS: ATTEND Ophthalmology
DX: H25.9 Unspecified age-related cataract (principal); I25.10 Atherosclerotic heart disease of native coronary artery without angina pectoris; E11.9 Type 2 diabetes mellitus without complications; J44.9 Chronic obstructive pulmonary disease, unspecified; M19.90 Unspecified osteoarthritis, unspecified site; M46.90 Unspecified inflammatory spondylopathy, site unspecified; B86 Scabies; F41.9 Anxiety disorder, unspecified; F32.9 Major depressive disorder, single episode, unspecified; I48.91 Unspecified atrial fibrillation; N18.3 Chronic kidney disease, stage 3 (moderate); I71.4 Abdominal aortic aneurysm, without rupture; D50.9 Iron deficiency anemia, unspecified; Z95.5 Presence of coronary angioplasty implant and graft; Z88.0 Allergy status to penicillin; Z88.1 Allergy status to other antibiotic agents; Z88.8 Allergy status to other drugs, medicaments and biological substances; Z79.899 Other long term (current) drug therapy; Z79.51 Long term (current) use of inhaled steroids; Z79.82 Long term (current) use of aspirin; Z79.4 Long term (current) use of insulin; Z79.01 Long term (current) use of anticoagulants; Z95.1 Presence of aortocoronary bypass graft
CPT/HCPCS: 66984; J2250; V2632

== ENCOUNTER → 2017-04-04 | Outpatient (CLI) | payer MEDICARE, MEDICAID ==
[~2017-04-04] MED LIST changes: -ACETAMINOPHEN 325 MG TAB PO PRN; -ALBUTEROL SULFATE 2.5 MG/0.5 ML INH NEB SOLN As Ordered ONE; -ALBUTEROL SULFATE 2.5 MG/0.5 ML INH NEB SOLN INH ONE; -ATOR40TA PO; +ATOR40TA75 PO; -AcetaZOLAMIDE 500 MG ER CAP PO ONE; -BSS with VANC/TOB/EPI for EYE CASES IR ONE; +CIPR-249 PO; -CIPR500T89 PO; -COLA100C3 PO; +COLA100C5 PO; -CYCLOPENTOLATE 2% OPHTH SOLN 2ML BTL OS ONE; -KETOROLAC 0.5% OPHTH SOLN OS ONE; -LABETALOL HCL 100 MG/20 ML VIAL As Ordered ONE; -LIDOCAINE 4% INJ 5 ML AMP OU ONE; -LR 500 ML IV ONE; -METF500T PO; +METF500T13 PO; -MIDAZOLAM INJ 2 MG/2 ML VIAL (J2250) As Ordered ONE; -MUCI600T34 PO; +MUCI600T37 PO; -OFLOXACIN 0.3 % (OCUFLOX) OPTH SOL 5ML OS ONE; +PERC5TAB12 PO; -PERC5TAB6 PO; -PHENYLEPHRINE 2.5% OPHTH SOL 2ML OS ONE; +PLAV1TAB2 PO; -PLAV75TA38 PO; -PROPARACAINE 0.5% OPHTH SOL 15ML OS PRN; -TRIMETHOBENZAMIDE 300 MG CAP PO PRN; -TROPICAMIDE 1% OPHTH SOLN 2ML OS ONE; -ZETI10TA2 PO; +ZETI10TA30 PO
[2017-04-04 13:07] LABS: BASO % 0.4 % (0.0-1.0); EOS # 0.2 10^3/uL (0.0-0.50); EOS % 1.9 % (0.0-3.0); IMMATURE GRANULOCYTE % 0.6 % (0-0); LYMPH # 1.8 10^3/uL (1.5-4.5); MEAN CORPUSCULAR HEMOGLOBIN 25.8 pg (27.0-33.0); MEAN CORPUSCULAR HGB CONC 31.3 g/dl (32.0-36.5); MEAN CORPUSCULAR VOLUME 82.3 fl (80.0-96.0); MONO # 0.6 10^3/uL (0.0-0.8); MONO % 5.7 % (0.0-5.0); NEUTROPHILS # 7.4 10^3/uL (1.8-7.7); NEUTROPHILS % 73.4 % (36.0-66.0); PLATELET COUNT, AUTOMATED 285 10^3/uL (150-450); RED CELL DISTRIBUTION WIDTH 15.4 % (11.5-14.5); WHITE BLOOD COUNT 10.1 10^3/uL (4.0-10.0)
[2017-04-04 13:30] LABS: CALCIUM LEVEL 9.6 MG/DL (8.8-10.2); CREATININE FOR GFR 1.28 MG/DL (0.70-1.30); GLOMERULAR FILTRATION RATE 58.2 (>42); POTASSIUM SERUM 4.8 MEQ/L (3.5-5.1)
== END ==
LOC: M LAB 11:34
PROVIDERS: ATTEND Surgery Vascular Surgery
DX: Z01.818 Encounter for other preprocedural examination (principal); I71.4 Abdominal aortic aneurysm, without rupture; D69.8 Other specified hemorrhagic conditions

== ENCOUNTER → 2017-04-17 | Outpatient (REF) | payer MEDICARE, MEDICAID ==
[2017-04-17 13:49] LABS: BASO % 0.3 % (0.0-1.0); EOS # 0.1 10^3/uL (0.0-0.50); IMMATURE GRANULOCYTE % 0.5 % (0-0); LYMPH # 1.4 10^3/uL (1.5-4.5); LYMPH % 12.3 % (24.0-44.0); MEAN CORPUSCULAR HEMOGLOBIN 25.9 pg (27.0-33.0); MEAN CORPUSCULAR HGB CONC 31.1 g/dl (32.0-36.5); MEAN CORPUSCULAR VOLUME 83.4 fl (80.0-96.0); MONO # 0.8 10^3/uL (0.0-0.8); NEUTROPHILS # 9.1 10^3/uL (1.8-7.7); NEUTROPHILS % 78.9 % (36.0-66.0); PLATELET COUNT, AUTOMATED 528 10^3/uL (150-450); RED CELL DISTRIBUTION WIDTH 15.4 % (11.5-14.5); WHITE BLOOD COUNT 11.6 10^3/uL (4.0-10.0)
[2017-04-17 14:15] LABS: ALBUMIN 3.1 GM/DL (3.2-5.2); ALBUMIN/GLOBULIN RATIO 0.69 (1.00-1.93); ALKALINE PHOSPHATASE 135 U/L (45-117); ALT/SGPT 27 U/L (12-78); ANION GAP 3 MEQ/L (8-16); AST/SGOT 24 U/L (7-37); BILIRUBIN,TOTAL 0.7 MG/DL (0.2-1.0); BLOOD UREA NITROGEN 15 MG/DL (7-18); CALCIUM LEVEL 9.3 MG/DL (8.8-10.2); CARBON DIOXIDE LEVEL 32 MEQ/L (21-32); CHLORIDE LEVEL 101 MEQ/L (98-107); CREATININE FOR GFR 1.21 MG/DL (0.70-1.30); GLOMERULAR FILTRATION RATE > 60.0 (>42); GLUCOSE, FASTING 92 MG/DL (83-110); SODIUM LEVEL 136 MEQ/L (136-145); TOTAL PROTEIN 7.6 GM/DL (6.4-8.2)
[2017-04-17 14:22] LABS: POTASSIUM SERUM 5.2 MEQ/L (3.5-5.1)
== END ==
LOC: M SFHCPLAZ 12:50
PROVIDERS: ATTEND Family Medicine
DX: R19.7 Diarrhea, unspecified (principal)
CPT/HCPCS: 36415; 80053; 83605; 84484; 85025; 86140; G0463

== ENCOUNTER → 2017-05-11 | Outpatient (CLI) | payer MEDICARE, MEDICAID ==
--- NOTE | 2017-05-11 15:28 | REP ---
Clinical: COPD with chest pain and shortness of breath. Technique: PA and lateral. Comparison: 06/15/2016. Findings: Mediastinum and cardiac silhouette are stable. Prior sternotomy and CABG again noted. Lung syed demonstrate increased interstitial markings and mildly prominent pulmonary vasculature raising the possibility of pulmonary vascular congestion. Linear plate-like fibro atelectatic changes in the right middle lobe are similar to prior examination. No effusion. No pneumothorax. Skeletal structures stable. Impression: Chronic stable changes including fibro atelectatic changes in the right middle lobe. Cannot exclude mild pulmonary vascular congestion or trace superimposed atelectasis. Signed by Julio C Berry MD 05/11/2017 03:20 P
== END ==
LOC: M WUC 15:08
PROVIDERS: ATTEND Physician Assistant
DX: J44.9 Chronic obstructive pulmonary disease, unspecified (principal)

== ENCOUNTER 2017-06-13 23:35 | Inpatient (IN) | payer MEDICARE, MEDICAID ==
[2017-06-14] MEDS: MORPHINE 2 MG/ML 1ML SYRINGE IV (00:30)
[2017-06-14] MEDS: NS 500 ML IV (00:30)
[2017-06-14] MEDS: GASTROGRAFIN SOLUTION 30ML (Q9963) PO (00:47)
[2017-06-14] MEDS: GASTROGRAFIN SOLUTION 30ML PO (00:47)
[2017-06-14 00:48] LABS: BASO % 0.2 % (0.0-1.0); EOS # 0.1 10^3/uL (0.0-0.50); EOS % 0.8 % (0.0-3.0); HEMOGLOBIN 12.6 g/dl (14.0-18.0); IMMATURE GRANULOCYTE # 0.1 10^3/uL (0-0); IMMATURE GRANULOCYTE % 0.4 % (0-0); LYMPH # 1.3 10^3/uL (1.5-4.5); LYMPH % 9.5 % (24.0-44.0); MEAN CORPUSCULAR HEMOGLOBIN 25.9 pg (27.0-33.0); MEAN CORPUSCULAR HGB CONC 31.5 g/dl (32.0-36.5); MEAN CORPUSCULAR VOLUME 82.1 fl (80.0-96.0); MONO # 0.8 10^3/uL (0.0-0.8); NEUTROPHILS # 11.4 10^3/uL (1.8-7.7); NEUTROPHILS % 83.1 % (36.0-66.0); PLATELET COUNT, AUTOMATED 298 10^3/uL (150-450); RED BLOOD COUNT 4.87 10^6/uL (4.30-6.10); RED CELL DISTRIBUTION WIDTH 16.9 % (11.5-14.5); WHITE BLOOD COUNT 13.7 10^3/uL (4.0-10.0)
[2017-06-14 01:06] LABS: ALBUMIN 3.5 GM/DL (3.2-5.2); ALBUMIN/GLOBULIN RATIO 0.85 (1.00-1.93); ALKALINE PHOSPHATASE 136 U/L (45-117); ALT/SGPT 22 U/L (12-78); AMYLASE 60 U/L (25-115); ANION GAP 5 MEQ/L (8-16); AST/SGOT 20 U/L (7-37); BILIRUBIN,DIRECT 0.2 MG/DL (0.0-0.2); BILIRUBIN,TOTAL 0.6 MG/DL (0.2-1.0); BLOOD UREA NITROGEN 28 MG/DL (7-18); CALCIUM LEVEL 9.2 MG/DL (8.8-10.2); CARBON DIOXIDE LEVEL 31 MEQ/L (21-32); CHLORIDE LEVEL 99 MEQ/L (98-107); CREATININE FOR GFR 1.48 MG/DL (0.70-1.30); GLOMERULAR FILTRATION RATE 49.2 (>42); GLUCOSE, FASTING 280 MG/DL (83-110); LIPASE 321 U/L (73-393); POTASSIUM SERUM 4.7 MEQ/L (3.5-5.1); SODIUM LEVEL 135 MEQ/L (136-145); TOTAL PROTEIN 7.6 GM/DL (6.4-8.2)
[2017-06-14 01:09] LABS: LACTIC ACID SEPSIS PROTOCOL 1.5 MMOL/L (0.4-2.0)
[2017-06-14] MEDS ORDERED: ISOVUE-370 76% 100ML VIAL (Q9967) As Ordered (01:17)
[2017-06-14] MEDS: LORazepam 2 MG/ML VIAL (J2060) IV ×2 (03:41→04:06)
[2017-06-14] MEDS: HumaLOG INSULIN (NovoLOG) PER UNIT SC ×4 (06:00→23:51)
[2017-06-14] MEDS: LR 1,000 ML IV (06:13)
[2017-06-14] MEDS ORDERED: METOCLOPRAMIDE INJ 10MG/2ML VIAL (J2765) IV (06:15)
[2017-06-14] MEDS ORDERED: ONDANSETRON 4MG/2ML VIAL (J2405) IV (06:15)
[2017-06-14] MEDS: IPRATROPIUM 0.5MG/ALBUTEROL 2.5MG INH SOL UD 3ML (DUONEB)(J7620) NEB ×3 (08:00→20:00)
[2017-06-14 08:50] LABS: BEDSIDE GLUCOSE 285 MG/DL (83-110)
[2017-06-14] MEDS: ADVAIR HFA 230/21MCG INHALER INH ×2 (09:00→20:13)
[2017-06-14] MEDS: GABAPENTIN 100 MG CAP PO ×2 (09:10→21:50)
[2017-06-14] MEDS: NORCO, ANEXSIA 5/325MG TABLET (HYDROcodone/ACETAMINOPHEN) PO (09:10)
[2017-06-14] MEDS: PANTOPRAZOLE 40MG INJ (PROTONIX) (C9113) IV (09:11)
[2017-06-14] MEDS: BISOPROLOL FUMARATE 5 MG TAB PO ×2 (09:11→21:51)
[2017-06-14 12:55] LABS: BEDSIDE GLUCOSE 198 MG/DL (83-110)
[2017-06-14 18:44] LABS: BEDSIDE GLUCOSE 179 MG/DL (83-110)
[2017-06-14] MEDS ORDERED: BISOPROLOL FUMARATE 10 MG TAB PO (21:00)
[2017-06-14] MEDS: ALPRAZolam 0.5 MG TAB PO (21:50)
[2017-06-14] MEDS: ATORVASTATIN 20 MG TAB PO (21:50)
[2017-06-14] MEDS: HEPARIN SOD (PORCINE) 5000 UNITS/ML VIAL SQ (21:51)
[2017-06-14 23:50] LABS: BEDSIDE GLUCOSE 222 MG/DL (83-110)
[2017-06-15] MEDS: IPRATROPIUM 0.5MG/ALBUTEROL 2.5MG INH SOL UD 3ML (DUONEB)(J7620) NEB ×3 (02:00→13:31)
[2017-06-15] MEDS: LR 1,000 ML IV (02:13)
[2017-06-15] MEDS: HEPARIN SOD (PORCINE) 5000 UNITS/ML VIAL SQ ×2 (06:10→14:00)
[2017-06-15] MEDS: HumaLOG INSULIN (NovoLOG) PER UNIT SC ×2 (06:11→12:00)
[2017-06-15 06:15] LABS: HEMATOCRIT 38.8 % (42.0-52.0); MEAN CORPUSCULAR HEMOGLOBIN 25.5 pg (27.0-33.0); MEAN CORPUSCULAR HGB CONC 30.9 g/dl (32.0-36.5); MEAN CORPUSCULAR VOLUME 82.6 fl (80.0-96.0); PLATELET COUNT, AUTOMATED 281 10^3/uL (150-450); RED CELL DISTRIBUTION WIDTH 16.9 % (11.5-14.5); WHITE BLOOD COUNT 8.4 10^3/uL (4.0-10.0)
[2017-06-15 06:32] LABS: ALBUMIN/GLOBULIN RATIO 0.91 (1.00-1.93); ALKALINE PHOSPHATASE 99 U/L (45-117); ALT/SGPT 18 U/L (12-78); ANION GAP 8 MEQ/L (8-16); AST/SGOT 17 U/L (7-37); BILIRUBIN,TOTAL 0.5 MG/DL (0.2-1.0); BLOOD UREA NITROGEN 16 MG/DL (7-18); CALCIUM LEVEL 8.4 MG/DL (8.8-10.2); CARBON DIOXIDE LEVEL 29 MEQ/L (21-32); CHLORIDE LEVEL 105 MEQ/L (98-107); GLOMERULAR FILTRATION RATE > 60.0 (>42); GLUCOSE, FASTING 164 MG/DL (83-110); POTASSIUM SERUM 4.5 MEQ/L (3.5-5.1); SODIUM LEVEL 142 MEQ/L (136-145); TOTAL PROTEIN 6.3 GM/DL (6.4-8.2)
[2017-06-15] MEDS: ADVAIR HFA 230/21MCG INHALER INH (08:02)
[2017-06-15] MEDS: PANTOPRAZOLE 40MG INJ (PROTONIX) (C9113) IV (09:41)
[2017-06-15] MEDS: GABAPENTIN 100 MG CAP PO (09:41)
[2017-06-15 12:08] LABS: BEDSIDE GLUCOSE 174 MG/DL (83-110)
[2017-06-15 12:08] LABS: BEDSIDE GLUCOSE 168 MG/DL (83-110)
== END 2017-06-15 14:19 | disposition home or self-care (01) | DRG 394 ==
LOC: M ED 23:35 → M ED INP 06-14 06:13 → M MSPAV 06-14 07:47
DX: K43.6 Other and unspecified ventral hernia with obstruction, without gangrene (principal); I13.0 Hypertensive heart and chronic kidney disease with heart failure and stage 1 through stage 4 chronic kidney disease, or unspecified chronic kidney disease; J44.9 Chronic obstructive pulmonary disease, unspecified; I25.10 Atherosclerotic heart disease of native coronary artery without angina pectoris; K21.9 Gastro-esophageal reflux disease without esophagitis; E78.5 Hyperlipidemia, unspecified; E11.51 Type 2 diabetes mellitus with diabetic peripheral angiopathy without gangrene; E11.22 Type 2 diabetes mellitus with diabetic chronic kidney disease; N18.3 Chronic kidney disease, stage 3 (moderate); E66.9 Obesity, unspecified; F41.9 Anxiety disorder, unspecified; K57.90 Diverticulosis of intestine, part unspecified, without perforation or abscess without bleeding; I48.0 Paroxysmal atrial fibrillation; I50.9 Heart failure, unspecified; Z88.0 Allergy status to penicillin; Z88.8 Allergy status to other drugs, medicaments and biological substances; Z99.81 Dependence on supplemental oxygen; Z86.73 Personal history of transient ischemic attack (TIA), and cerebral infarction without residual deficits; Z79.84 Long term (current) use of oral hypoglycemic drugs; Z79.82 Long term (current) use of aspirin; Z79.02 Long term (current) use of antithrombotics/antiplatelets; Z79.899 Other long term (current) drug therapy; Z95.1 Presence of aortocoronary bypass graft; Z87.891 Personal history of nicotine dependence

== ENCOUNTER → 2017-10-31 | Outpatient (CLI) | payer MEDICARE, MEDICAID | LOC: M RAD 08:57 | DX: I71.4 Abdominal aortic aneurysm, without rupture (principal); K43.2 Incisional hernia without obstruction or gangrene; Z95.828 Presence of other vascular implants and grafts | CPT/HCPCS: 74176 ==

== ENCOUNTER 2018-03-14 19:41 | Observation (INO) | payer MEDICARE, MEDICAID ==
[2018-03-14 20:19] LABS: BASO % 0.4 % (0.0-1.0); EOS # 0.1 10^3/uL (0.0-0.50); EOS % 1.3 % (0.0-3.0); HEMATOCRIT 40.8 % (42.0-52.0); HEMOGLOBIN 12.2 g/dl (13.5-17.5); IMMATURE GRANULOCYTE % 0.4 % (0-3.0); LYMPH # 1.7 10^3/uL (1.5-4.5); LYMPH % 21.3 % (24.0-44.0); MEAN CORPUSCULAR HEMOGLOBIN 24.2 pg (27.0-33.0); MEAN CORPUSCULAR HGB CONC 29.9 g/dl (32.0-36.5); MONO # 0.5 10^3/uL (0.0-0.8); MONO % 6.3 % (0.0-5.0); NEUTROPHILS # 5.5 10^3/uL (1.8-7.7); NEUTROPHILS % 70.3 % (36.0-66.0); PLATELET COUNT, AUTOMATED 268 10^3/uL (150-450); RED BLOOD COUNT 5.04 10^6/uL (4.30-6.10); RED CELL DISTRIBUTION WIDTH 16.8 % (11.5-14.5); WHITE BLOOD COUNT 7.8 10^3/uL (4.0-10.0)
[2018-03-14 20:30] LABS: INR 1.33; PROTHROMBIN TIME 16.7 SECONDS (12.1-14.4)
[2018-03-14 20:31] LABS: PARTIAL THROMBOPLASTIN TIME 55.1 SECONDS (25.4-37.6)
[2018-03-14 20:41] LABS: ANION GAP 4 MEQ/L (8-16); BLOOD UREA NITROGEN 29 MG/DL (7-18); CALCIUM LEVEL 8.8 MG/DL (8.8-10.2); CARBON DIOXIDE LEVEL 31 MEQ/L (21-32); CHLORIDE LEVEL 98 MEQ/L (98-107); CPK CREATINE PHOSPHOKINASE 62 U/L (39-308); CREATININE FOR GFR 2.01 MG/DL (0.70-1.30); GLOMERULAR FILTRATION RATE 34.5 (>42); GLUCOSE, FASTING 364 MG/DL (70-100); MB/CK RELATIVE INDEX 1.94 (< OR =4); POTASSIUM SERUM 4.8 MEQ/L (3.5-5.1); SODIUM LEVEL 133 MEQ/L (136-145); TROPONIN I < 0.02 NG/ML (< 0.10)
[2018-03-14] MEDS: FAMOTIDINE 20 MG TAB PO ×2 (21:00)
[2018-03-14] MEDS: DABIGATRAN ETEXILATE 75 MG CAP (PRADAXA) PO ×2 (21:00)
[2018-03-14] MEDS: GABAPENTIN 300 MG CAP PO ×2 (21:00)
[2018-03-14 21:24] LABS: ALBUMIN 3.4 GM/DL (3.2-5.2); ALBUMIN/GLOBULIN RATIO 0.83 (1.00-1.93); ALKALINE PHOSPHATASE 123 U/L (45-117); ALT/SGPT 27 U/L (12-78); AST/SGOT 23 U/L (7-37); BILIRUBIN,DIRECT < 0.1 MG/DL (0.0-0.2); BILIRUBIN,TOTAL 0.3 MG/DL (0.2-1.0); LIPASE 188 U/L (73-393); TOTAL PROTEIN 7.5 GM/DL (6.4-8.2)
[2018-03-15] MEDS ORDERED: ALPRAZolam 0.5 MG TAB PO ×2 (00:45)
[2018-03-15] MEDS ORDERED: FLUTICASONE PROP 0.05% NASAL SPRAY 16 GM (FLONASE) ×2 (00:45)
[2018-03-15] MEDS ORDERED: ALBUTEROL SULFATE 2.5 MG/0.5 ML INH NEB SOLN INH ×2 (00:45)
[2018-03-15] MEDS ORDERED: SODIUM CHLORIDE NASAL 0.65% SPRAY BTL (OCEAN) ×2 (00:45)
[2018-03-15] MEDS ORDERED: ACETAMINOPHEN TAB 650MG DOSE (2X325MG) PO ×2 (00:45)
[2018-03-15] MEDS: ATORVASTATIN 20 MG TAB PO ×2 (03:39)
[2018-03-15] MEDS: NS 1,000 ML IV ×2 (03:40)
[2018-03-15] MEDS: BISOPROLOL FUMARATE 5 MG TAB PO ×2 (03:40)
[2018-03-15] MEDS: HEPARIN SOD (PORCINE) 5000 UNITS/ML VIAL SC ×4 (05:40→13:58)
[2018-03-15 05:59] LABS: ANION GAP 7 MEQ/L (8-16); BLOOD UREA NITROGEN 28 MG/DL (7-18); CARBON DIOXIDE LEVEL 27 MEQ/L (21-32); CHLORIDE LEVEL 103 MEQ/L (98-107); CREATININE FOR GFR 1.77 MG/DL (0.70-1.30); GLOMERULAR FILTRATION RATE 39.9 (>42); GLUCOSE, FASTING 190 MG/DL (70-100); POTASSIUM SERUM 4.8 MEQ/L (3.5-5.1); SODIUM LEVEL 137 MEQ/L (136-145); TROPONIN I < 0.02 NG/ML (< 0.10)
[2018-03-15] MEDS: ADVAIR HFA 115/21MCG INHALER INH ×2 (08:20)
[2018-03-15] MEDS: EZETIMIBE 10 MG TAB (ZETIA) PO ×2 (09:24)
[2018-03-15] MEDS: DABIGATRAN ETEXILATE 75 MG CAP (PRADAXA) PO ×2 (09:24)
[2018-03-15] MEDS: CYANOCOBALAMIN 500 MCG TAB PO ×2 (09:24)
[2018-03-15] MEDS: FAMOTIDINE 20 MG TAB PO ×2 (09:24)
[2018-03-15] MEDS: GABAPENTIN 300 MG CAP PO ×2 (09:24)
[2018-03-15] MEDS: PANTOPRAZOLE 40MG TAB (PROTONIX) PO ×2 (09:24)
[2018-03-15] MEDS: ASPIRIN 81 MG ENTERIC TAB PO ×2 (09:24)
[2018-03-15] MEDS: DOCUSATE SODIUM 100 MG CAP PO ×2 (09:24)
[2018-03-15] MEDS: GLIMEPIRIDE 2 MG TAB PO ×2 (09:25)
[2018-03-15] MEDS: MIRALAX *UNIT DOSE* 17GM PACKET PO ×2 (09:25)
[2018-03-15 13:25] LABS: TROPONIN I < 0.02 NG/ML (< 0.10)
[2018-03-16] MEDS ORDERED: FLUBLOK(EGG FREE)(QUAD)INFLUENZA VACC 0.5ML SYRINGE (90682)18YRS&OLDER IM ×2 (09:00)
[2018-03-27] MEDS ORDERED: VITAMIN D 50,000 UNITS CAPSULE (ERGOCALCIFEROL 1.25MG) PO ×2 (12:00)
== END 2018-03-15 16:05 | disposition home or self-care (01) ==
LOC: M ED INP 03-15 00:40 → M ED 19:41 → M PCU 03-15 02:58
DX: R07.89 Other chest pain (principal); A08.4 Viral intestinal infection, unspecified; N18.3 Chronic kidney disease, stage 3 (moderate); N17.9 Acute kidney failure, unspecified; I25.10 Atherosclerotic heart disease of native coronary artery without angina pectoris; Z98.61 Coronary angioplasty status; Z95.1 Presence of aortocoronary bypass graft; K21.9 Gastro-esophageal reflux disease without esophagitis; J44.9 Chronic obstructive pulmonary disease, unspecified; I11.9 Hypertensive heart disease without heart failure; E78.49 Other hyperlipidemia; E11.9 Type 2 diabetes mellitus without complications; Z79.4 Long term (current) use of insulin; I73.9 Peripheral vascular disease, unspecified; K59.00 Constipation, unspecified; D63.8 Anemia in other chronic diseases classified elsewhere; I48.0 Paroxysmal atrial fibrillation; Z86.73 Personal history of transient ischemic attack (TIA), and cerebral infarction without residual deficits; I50.32 Chronic diastolic (congestive) heart failure; Z99.81 Dependence on supplemental oxygen
CPT/HCPCS: 71046

== ENCOUNTER → 2018-05-14 | Outpatient (CLI) | payer MEDICARE, MEDICAID | LOC: M RAD 08:14 | DX: I71.4 Abdominal aortic aneurysm, without rupture (principal) | CPT/HCPCS: 76775 ==

== ENCOUNTER → 2018-06-14 | Outpatient (REF) | payer MEDICARE, MEDICAID ==
[~2018-06-14] MED LIST changes: +ACET500T15 PO; +ASPI325T PO; +ASPI81TAEC PO; +AZEL1SPR3; +DOCU100C16 PO; -DRIS50002 PO; +DRIS50003 PO; +GABA-1171 PO; -GABA-279 PO; +GABA-843 PO; +GLIM4TAB PO; -LASI40TA PO; +LASI40TA9 PO; +MIRA33504 PO; +NORC10TA21 PO; +RANI150T PO; +TRES1INJ SC; +VITA50005 PO; +VITA500T3 PO; +ZANT150T15 PO; -ZANT1TAB PO; -ZOFR20TA PO; +ZOFR4TAB16 PO
[2018-06-14 12:39] LABS: BASO % 0.3 % (0.0-1.0); EOS # 0.2 10^3/uL (0.0-0.50); EOS % 1.9 % (0.0-3.0); HEMATOCRIT 40.1 % (42.0-52.0); LYMPH # 1.9 10^3/uL (1.5-4.5); LYMPH % 18.6 % (24.0-44.0); MEAN CORPUSCULAR HEMOGLOBIN 24.5 pg (27.0-33.0); MEAN CORPUSCULAR HGB CONC 29.9 g/dl (32.0-36.5); MEAN CORPUSCULAR VOLUME 81.8 fl (80.0-96.0); MONO # 0.8 10^3/uL (0.0-0.8); MONO % 7.4 % (0.0-5.0); NEUTROPHILS # 7.3 10^3/uL (1.8-7.7); NEUTROPHILS % 71.3 % (36.0-66.0); PLATELET COUNT, AUTOMATED 294 10^3/uL (150-450); WHITE BLOOD COUNT 10.2 10^3/uL (4.0-10.0)
[2018-06-14 13:09] LABS: ALBUMIN 3.4 GM/DL (3.2-5.2); BILIRUBIN,TOTAL 0.5 MG/DL (0.2-1.0); CALCIUM LEVEL 9.1 MG/DL (8.8-10.2); CREATININE FOR GFR 1.5 MG/DL (0.70-1.30); GLOMERULAR FILTRATION RATE 48.3 (>42); PERCENT SATURATION 11.8 % (19.7-50.0); POTASSIUM SERUM 4.9 MEQ/L (3.5-5.1); THYROID STIMULATING HORMONE 1.49 uIU/ML (0.358-3.740)
[2018-06-14 13:39] LABS: PTH INTACT 70.4 PG/ML (18.5-88.0); TOTAL 25(OH) VITAMIN D 42.8 NG/ML (30.0-100.0)
[2018-06-14 13:40] LABS: HEMOGLOBIN A1c 13.9 %
== END ==
LOC: M LABDRAW1 12:02
PROVIDERS: ATTEND Family Medicine
DX: N18.3 Chronic kidney disease, stage 3 (moderate) (principal); I48.91 Unspecified atrial fibrillation; E11.9 Type 2 diabetes mellitus without complications; Z23 Encounter for immunization
CPT/HCPCS: 36415; 80053; 82306; 82728; 83036; 83550; 83970; 84439; 84443; 85025; 90682; G0008; G0463

== ENCOUNTER → 2018-09-11 | Outpatient (REF) | payer MEDICARE, MEDICAID ==
[~2018-09-11] MED LIST changes: -/ADVA50050; -/ATOR40TA; -/SUCR1TA; +ADVA1AER2; +ASPI-1 PO; -ASPI1TAB PO; -ASPI325T PO; -ASPI81CH PO; +ASPI81CH49 PO; +ASPI81TA26 PO; -BISO10TA PO; +BISO10TA13 PO; +HYDR-3715 PO; +LANO0.12 PO; -LANO0.1211 PO; +LIPI1TAB2; -NORC10TA21 PO; +NORC1TAB5 PO; -NORCOTAB PO; -PRAD150C PO; +PRAD150C6 PO; +SUCR1TAB56; -VICO5TAB16 PO; +VICO5TAB17 PO
[2018-09-11 13:21] LABS: CHOLESTEROL LEVEL 165 MG/DL (<200); HDL CHOLESTEROL 30 MG/DL (>40); NON-HDL-C 135 MG/DL; TRIGLYCERIDES LEVEL 440 MG/DL (<150); VITAMIN B12 LEVEL 687 PG/ML (247-911)
[2018-09-11 14:09] LABS: BASO % 0.3 % (0.0-1.0); EOS # 0.2 10^3/uL (0.0-0.50); EOS % 2.1 % (0.0-3.0); HEMATOCRIT 41.2 % (42.0-52.0); HEMOGLOBIN 12.4 g/dl (13.5-17.5); LYMPH % 22.9 % (24.0-44.0); MEAN CORPUSCULAR HEMOGLOBIN 24.7 pg (27.0-33.0); MEAN CORPUSCULAR HGB CONC 30.1 g/dl (32.0-36.5); MEAN CORPUSCULAR VOLUME 81.9 fl (80.0-96.0); MONO # 0.6 10^3/uL (0.0-0.8); MONO % 7.1 % (0.0-5.0); NEUTROPHILS # 5.9 10^3/uL (1.8-7.7); PLATELET COUNT, AUTOMATED 306 10^3/uL (150-450); RED BLOOD COUNT 5.03 10^6/uL (4.30-6.10); WHITE BLOOD COUNT 8.9 10^3/uL (4.0-10.0)
[2018-09-11 15:09] LABS: HEMOGLOBIN A1c 13.6 %
== END ==
LOC: M LABDRAW1 11:46
PROVIDERS: ATTEND Family Medicine
DX: E53.8 Deficiency of other specified B group vitamins (principal); E11.9 Type 2 diabetes mellitus without complications; R10.13 Epigastric pain
CPT/HCPCS: 36415; 80061; 82607; 83036; 85025; 85046; 86677; G0103

== ENCOUNTER → 2018-12-06 | Outpatient (REF) | payer MEDICARE, MEDICAID ==
[2018-12-06 17:03] LABS: CREATININE, URINE 78.2 MG/DL; MAU/CREAT RATIO 262.1 MCG/MG (0.0-30.0)
== END ==
LOC: M SFHCPLAZ 15:26
PROVIDERS: ATTEND Nurse Practitioner Family
DX: E11.9 Type 2 diabetes mellitus without complications (principal)

== ENCOUNTER → 2019-04-13 | Outpatient (CLI) | payer MEDICARE, MEDICAID ==
[~2019-04-13] MED LIST changes: -BISO5TAB5 PO; +BISO5TAB9 PO; +CYAN100049 PO; +CYAN500T8 PO; -GLIM4TAB PO; +GLIM4TAB3 PO; -VITA10002 PO; -VITA500T3 PO; +ZETI10TA16 PO; -ZETI10TA30 PO
--- NOTE | 2019-04-13 16:31 | REP ---
Clinical: Abdominal tenderness. Technique: For fifth 97 through a supine and upright views of the abdomen and pelvis. Findings: Bowel gas pattern is nonspecific. Evidence for aortobi-iliac stent graft. The skeletal structures demonstrate age-related changes. Impression: Nonspecific bowel gas pattern. Electronically Signed by Julio C Berry MD 04/13/2019 04:23 P
--- NOTE | 2019-04-13 16:33 | REP ---
Clinical: Chest pain. Technique: PA and lateral. Comparison: 03/14/2018. Findings: Mediastinum and cardiac silhouette are stable. Sternotomy and CABG noted. Linear right lower lobe fibroatelectatic changes. There is no further consolidation. No obvious effusion. No pneumothorax. Skeletal structures demonstrate age-related degenerative changes. Impression: Chronic changes. Linear fibroatelectatic changes in the right lower lung zone are nonspecific. Electronically Signed by Julio C Berry MD 04/13/2019 04:24 P
[2019-04-13 17:31] LABS: BASO # 0.1 10^3/uL (0.0-0.2); BASO % 0.4 % (0.0-1.0); EOS # 0.1 10^3/uL (0.0-0.5); EOS % 1.1 % (0.0-3.0); HEMATOCRIT 46.7 % (42.0-52.0); HEMOGLOBIN 14.1 g/dl (13.5-17.5); LYMPH # 2.1 10^3/uL (1.5-5.0); LYMPH % 15.7 % (24.0-44.0); MEAN CORPUSCULAR HEMOGLOBIN 24.4 pg (27.0-33.0); MEAN CORPUSCULAR HGB CONC 30.2 g/dl (32.0-36.5); MEAN CORPUSCULAR VOLUME 80.8 fl (80.0-96.0); MONO # 0.8 10^3/uL (0.0-0.8); MONO % 5.9 % (0.0-5.0); NEUTROPHILS # 10.2 10^3/uL (1.5-8.5); NEUTROPHILS % 76.3 % (36.0-66.0); PLATELET COUNT, AUTOMATED 343 10^3/uL (150-450); RED BLOOD COUNT 5.78 10^6/uL (4.30-6.10); WHITE BLOOD COUNT 13.3 10^3/uL (4.0-10.0)
[2019-04-13 17:38] LABS: ALBUMIN 3.7 GM/DL (3.2-5.2); BILIRUBIN,TOTAL 0.5 MG/DL (0.2-1.0); CALCIUM LEVEL 9.8 MG/DL (8.8-10.2); CREATININE FOR GFR 1.77 MG/DL (0.70-1.30); GLOMERULAR FILTRATION RATE 39.8 (>42); POTASSIUM SERUM 5.1 MEQ/L (3.5-5.1); TOTAL PROTEIN 7.9 GM/DL (6.4-8.2)
== END ==
LOC: M WUC 15:48
PROVIDERS: ATTEND Physician Assistant
DX: R10.816 Epigastric abdominal tenderness (principal); J44.1 Chronic obstructive pulmonary disease with (acute) exacerbation

== ENCOUNTER → 2019-05-19 | Outpatient (CLI) | payer MEDICARE, MEDICAID ==
--- NOTE | 2019-05-19 10:04 | REP ---
ULTRASOUND ABDOMINAL AORTA: Real-time sonographic evaluation of the abdominal aorta was performed. The study is significantly limited due to patient body habitus and bowel gas. Also there is mesh in the anterior abdominal wall from prior hernia repair which limits evaluation. Proximal abdominal aorta can not be visualized. Mid abdominal aorta measures 3.9 x 3.4 cm and distal 4.3 x 5.0 cm. Common iliac arteries are intact. Right measuring 1.2 x 1.5 cm and left 1.6 x 1.7 cm. IMPRESSION: Aneurysm distal abdominal aorta, maximum AP diameter 4.3 cm. This is grossly unchanged when compared to the prior study of 05/14/2018. The study is limited due to patient body habitus and bowel gas. Electronically Signed by Lenny Alfaro MD 05/19/2019 03:48 P
== END ==
LOC: M RAD 07:22
PROVIDERS: ATTEND Surgery Vascular Surgery
DX: I71.4 Abdominal aortic aneurysm, without rupture (principal)

== ENCOUNTER → 2019-06-16 | Outpatient (REF) | payer MEDICARE, MEDICAID ==
[~2019-06-16] MED LIST changes: +BISO5TAB14 PO; -BISO5TAB9 PO; -GLIM4TAB3 PO; +GLIM4TAB5 PO
[2019-06-16 12:14] LABS: BASO % 0.3 % (0.0-1.0); EOS # 0.3 10^3/uL (0.0-0.5); EOS % 2.1 % (0.0-3.0); HEMATOCRIT 43.6 % (42.0-52.0); HEMOGLOBIN 13.3 g/dl (13.5-17.5); LYMPH # 1.9 10^3/uL (1.5-5.0); LYMPH % 14.9 % (24.0-44.0); MEAN CORPUSCULAR HEMOGLOBIN 25.6 pg (27.0-33.0); MEAN CORPUSCULAR HGB CONC 30.5 g/dl (32.0-36.5); MONO # 0.8 10^3/uL (0.0-0.8); MONO % 6.4 % (0.0-5.0); NEUTROPHILS # 9.4 10^3/uL (1.5-8.5); NEUTROPHILS % 75.6 % (36.0-66.0); PLATELET COUNT, AUTOMATED 307 10^3/uL (150-450); RED BLOOD COUNT 5.19 10^6/uL (4.30-6.10); WHITE BLOOD COUNT 12.5 10^3/uL (4.0-10.0)
[2019-06-16 12:37] LABS: HEMOGLOBIN A1c 10.9 %
[2019-06-16 12:44] LABS: ALBUMIN 3.2 GM/DL (3.2-5.2); BILIRUBIN,TOTAL 0.6 MG/DL (0.2-1.0); CALCIUM LEVEL 9.3 MG/DL (8.8-10.2); CHOLESTEROL RISK RATIO 5.068 (<5); CREATININE FOR GFR 1.35 MG/DL (0.70-1.30); GLOMERULAR FILTRATION RATE 54.4 (>42); POTASSIUM SERUM 4.7 MEQ/L (3.5-5.1)
[2019-06-16 12:49] LABS: PTH INTACT 101.7 PG/ML (18.5-88.0); TOTAL 25(OH) VITAMIN D 41.1 NG/ML (30.0-100.0)
== END ==
LOC: M SFHCPLAZ 09:51
PROVIDERS: ATTEND Family Medicine
DX: E78.5 Hyperlipidemia, unspecified (principal); N18.3 Chronic kidney disease, stage 3 (moderate); E11.9 Type 2 diabetes mellitus without complications; Z79.899 Other long term (current) drug therapy; Z23 Encounter for immunization
CPT/HCPCS: 36415; 80053; 80061; 80307; 82306; 83036; 83970; 85025; 85046; 90682; G0008; G0463

== ENCOUNTER → 2020-04-28 | Outpatient (REF) | payer MEDICARE, MEDICAID ==
[2020-04-28 13:32] LABS: BASO % 0.4 % (0.0-1.0); EOS # 0.2 10^3/uL (0.0-0.5); EOS % 2.5 % (0.0-3.0); HEMATOCRIT 43.7 % (42.0-52.0); HEMOGLOBIN 13.3 g/dl (13.5-17.5); LYMPH # 1.9 10^3/uL (1.5-5.0); LYMPH % 19.4 % (24.0-44.0); MEAN CORPUSCULAR HEMOGLOBIN 25.8 pg (27.0-33.0); MEAN CORPUSCULAR HGB CONC 30.4 g/dl (32.0-36.5); MEAN CORPUSCULAR VOLUME 84.9 fl (80.0-96.0); MONO # 0.6 10^3/uL (0.0-0.8); MONO % 6.1 % (0.0-5.0); NEUTROPHILS # 6.8 10^3/uL (1.5-8.5); NEUTROPHILS % 71.1 % (36.0-66.0); PLATELET COUNT, AUTOMATED 255 10^3/uL (150-450); RED BLOOD COUNT 5.15 10^6/uL (4.30-6.10); WHITE BLOOD COUNT 9.6 10^3/uL (4.0-10.0)
[2020-04-28 14:26] LABS: ALBUMIN 3.4 GM/DL (3.2-5.2); BILIRUBIN,TOTAL 0.5 MG/DL (0.2-1.0); CALCIUM LEVEL 9.3 MG/DL (8.8-10.2); CHOLESTEROL RISK RATIO 4.941 (<5); CREATININE FOR GFR 1.39 MG/DL (0.70-1.30); FREE T4 1.03 NG/DL (0.76-1.46); GLOMERULAR FILTRATION RATE 52.5 (>42); POTASSIUM SERUM 5.4 MEQ/L (3.5-5.1); PTH INTACT 77.2 PG/ML (18.5-88.0); THYROID STIMULATING HORMONE 2.06 uIU/ML (0.358-3.740); TOTAL 25(OH) VITAMIN D 40.4 NG/ML (30.0-100.0); TOTAL PROTEIN 7.1 GM/DL (6.4-8.2)
[2020-04-28 14:39] LABS: HEMOGLOBIN A1c 10.5 %
== END ==
LOC: M SFHCPLAZ 09:49
PROVIDERS: ATTEND Family Medicine
DX: E11.9 Type 2 diabetes mellitus without complications (principal); E55.9 Vitamin D deficiency, unspecified; D50.9 Iron deficiency anemia, unspecified; E78.5 Hyperlipidemia, unspecified; Z12.5 Encounter for screening for malignant neoplasm of prostate; N18.30 Chronic kidney disease, stage 3 unspecified
CPT/HCPCS: 36415; 80053; 80061; 80307; 82306; 82607; 83036; 83970; 84439; 84443; 85025; 85046; G0103

== ENCOUNTER → 2020-09-23 | Outpatient (CLI) | payer MEDICARE, MEDICAID ==
[~2020-09-23] MED LIST changes: +ASPI-569 PO; -ASPI81TAEC PO; +CYAN500T14 PO; -CYAN500T8 PO; +GABA-282 PO; -GABA-843 PO
--- NOTE | 2020-09-23 15:59 | REPPI ---
INDICATION: R07.9 CHEST PAIN R05 COUGH R06.02 SOB J44.9 COPD. COMPARISON: 04/13/2019 TECHNIQUE: PA and lateral FINDINGS: The cardiomediastinal silhouette is unchanged. There is mild cardiomegaly. Note is again made of previous median sternotomy. There is a chronic right basilar opacity which is stable. The pleural angles are sharp. No acute patchy parenchymal opacities or pleural effusions have developed. There is no change in the osseous structures. 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 This be correlated clinically with appropriate follow-up. There is cardiomegaly status quo. Other findings as described above. <Electronically signed by Kedar Ruiz > 09/23/20 [id number]
== END ==
LOC: M PLAIMG 15:22
PROVIDERS: ATTEND Physician Assistant
DX: I51.7 Cardiomegaly (principal); R91.8 Other nonspecific abnormal finding of lung field; R07.9 Chest pain, unspecified; R05 Cough; R06.02 Shortness of breath; J44.9 Chronic obstructive pulmonary disease, unspecified
CPT/HCPCS: 36415; 71046; 80053; 83880; 84484; 85025; 93005; G0463

== ENCOUNTER → 2020-09-23 | Outpatient (REF) | payer MEDICARE, MEDICAID ==
[2020-09-23 17:32] LABS: BASO # 0.1 10^3/uL (0.0-0.2); BASO % 0.6 % (0.0-1.0); EOS # 0.3 10^3/uL (0.0-0.5); EOS % 2.5 % (0.0-3.0); HEMATOCRIT 42.8 % (42.0-52.0); HEMOGLOBIN 12.7 g/dl (13.5-17.5); LYMPH # 2.4 10^3/uL (1.5-5.0); LYMPH % 19.2 % (24.0-44.0); MEAN CORPUSCULAR HEMOGLOBIN 25.3 pg (27.0-33.0); MEAN CORPUSCULAR HGB CONC 29.7 g/dl (32.0-36.5); MEAN CORPUSCULAR VOLUME 85.4 fl (80.0-96.0); MONO # 0.8 10^3/uL (0.0-0.8); MONO % 6.6 % (2.0-8.0); NEUTROPHILS # 8.9 10^3/uL (1.5-8.5); NEUTROPHILS % 70.3 % (36.0-66.0); PLATELET COUNT, AUTOMATED 308 10^3/uL (150-450); RED BLOOD COUNT 5.01 10^6/uL (4.30-6.10); WHITE BLOOD COUNT 12.7 10^3/uL (4.0-10.0)
[2020-09-23 18:19] LABS: ALBUMIN 3.5 GM/DL (3.2-5.2); BILIRUBIN,TOTAL 0.5 MG/DL (0.2-1.0); CALCIUM LEVEL 9.4 MG/DL (8.8-10.2); CREATININE FOR GFR 1.48 MG/DL (0.70-1.30); GLOMERULAR FILTRATION RATE 48.8 (>42); POTASSIUM SERUM 4.6 MEQ/L (3.5-5.1); TOTAL PROTEIN 7.3 GM/DL (6.4-8.2); TROPONIN I 0.04 NG/ML (< 0.10)
== END ==
LOC: M SFHCPLAZ 15:23
PROVIDERS: ATTEND Physician Assistant
DX: R07.9 Chest pain, unspecified (principal); R05 Cough; R06.02 Shortness of breath; J44.9 Chronic obstructive pulmonary disease, unspecified

== ENCOUNTER → 2020-11-09 | Outpatient (CLI) | payer MEDICARE, MEDICAID ==
--- NOTE | 2020-11-09 14:51 | REP ---
INDICATION: COPD. COMPARISON: None. TECHNIQUE: Only a lateral view was obtained. By history the patient refused additional imaging. FINDINGS: The examination is incomplete. Only a lateral view was obtained. Any disease process cannot be ruled out. IMPRESSION: Nondiagnostic exam. Both frontal and lateral views of the chest are recommended. <Electronically signed by Kedar Ruiz > 11/09/20 [id number]
== END ==
LOC: M WUC 14:07
PROVIDERS: ATTEND Physician Assistant
DX: S40.012A Contusion of left shoulder, initial encounter (principal); J44.1 Chronic obstructive pulmonary disease with (acute) exacerbation; W18.30XA Fall on same level, unspecified, initial encounter; Y92.009 Unspecified place in unspecified non-institutional (private) residence as the place of occurrence of the external cause

== ENCOUNTER → 2020-12-08 | Outpatient (CLI) | payer MEDICARE, MEDICAID ==
--- NOTE | 2020-12-08 12:51 | REP ---
INDICATION: COPD. COMPARISON: Multiple the latest 11/09/2020 2 lateral views with the latest prior frontal view of 09/23/2020 TECHNIQUE: Right PA and lateral views FINDINGS: There is cardiomegaly status quo. Note is again made of previous median sternotomy. There is a chronic right basilar curvilinear radiodensity status quo. There are bibasilar interstitial fibrotic changes which are stable. No acute patchy parenchymal opacities or pleural effusions have developed. The osseous structures are stable and intact. IMPRESSION: Stable appearing chronic changes as described above. <Electronically signed by Kedar Ruiz > 12/08/20 [id number]
--- NOTE | 2020-12-08 12:53 | REP ---
INDICATION: IMPINGEMENT OF LEFT SHOULDER. COMPARISON: None TECHNIQUE: Three views of the left shoulder were performed. FINDINGS: The acromioclavicular and glenohumeral relationships are within normal limits. There is no acute fracture or destructive osseous lesion. A large spurs seen arising from the inferior surface of the acromion process projecting into the subacromial space. IMPRESSION: Chronic changes as described above. <Electronically signed by Kedar Ruiz > 12/08/20 [id number]
[2020-12-08 15:19] LABS: BASO % 0.3 % (0.0-1.0); EOS # 0.1 10^3/uL (0.0-0.5); EOS % 1.4 % (0.0-3.0); HEMATOCRIT 41.9 % (42.0-52.0); HEMATOCRIT 42.8 % (42.0-52.0); HEMOGLOBIN 12.4 g/dl (13.5-17.5); LYMPH # 1.4 10^3/uL (1.5-5.0); LYMPH % 21.3 % (24.0-44.0); MEAN CORPUSCULAR HEMOGLOBIN 25.6 pg (27.0-33.0); MEAN CORPUSCULAR VOLUME 88.2 fl (80.0-96.0); MONO # 0.6 10^3/uL (0.0-0.8); MONO % 9.5 % (2.0-8.0); NEUTROPHILS # 4.4 10^3/uL (1.5-8.5); PLATELET COUNT, AUTOMATED 263 10^3/uL (150-450); RED BLOOD COUNT 4.85 10^6/uL (4.30-6.10); WHITE BLOOD COUNT 6.5 10^3/uL (4.0-10.0)
[2020-12-08 15:38] LABS: HEMOGLOBIN A1c 8.5 %
[2020-12-08 15:49] LABS: ALBUMIN 3.2 GM/DL (3.2-5.2); BILIRUBIN,TOTAL 0.4 MG/DL (0.2-1.0); CALCIUM LEVEL 9.2 MG/DL (8.8-10.2); CREATININE FOR GFR 1.62 MG/DL (0.70-1.30); POTASSIUM SERUM 5.5 MEQ/L (3.5-5.1); TOTAL PROTEIN 6.6 GM/DL (6.4-8.2)
== END ==
LOC: M PLAIMG 11:56
PROVIDERS: ATTEND Family Medicine
DX: J44.9 Chronic obstructive pulmonary disease, unspecified (principal); I51.7 Cardiomegaly; M75.42 Impingement syndrome of left shoulder; E11.9 Type 2 diabetes mellitus without complications; E53.8 Deficiency of other specified B group vitamins; N18.30 Chronic kidney disease, stage 3 unspecified
CPT/HCPCS: 36415; 71046; 73030; 80053; 82607; 82728; 82747; 83036; 83550; 83880; 85025; G0463

== ENCOUNTER 2020-12-12 19:21 | Emergency (ER) | payer MEDICARE, MEDICAID ==
[2020-12-12 19:38] VITALS: BP 0/0
[2020-12-12] MEDS ORDERED: SODIUM BICARBONATE 8.4% INJ 50 ML SYRINGE IV STA (20:07)
[2020-12-12] MEDS ORDERED: EPINEPHrine 1MG/10ML SYRINGE 1.5IN IV STA ×2 (20:07)
== END 2020-12-12 22:00 | disposition expired ==
LOC: M ED 19:21 → EDBD 19:21 → M ED 22:00
DX: I46.9 Cardiac arrest, cause unspecified (principal); I50.9 Heart failure, unspecified; I25.2 Old myocardial infarction; E11.9 Type 2 diabetes mellitus without complications; I10 Essential (primary) hypertension; E78.5 Hyperlipidemia, unspecified; K21.9 Gastro-esophageal reflux disease without esophagitis; J45.909 Unspecified asthma, uncomplicated; Z86.79 Personal history of other diseases of the circulatory system; Z79.84 Long term (current) use of oral hypoglycemic drugs; Z79.82 Long term (current) use of aspirin; Z79.899 Other long term (current) drug therapy; Z88.8 Allergy status to other drugs, medicaments and biological substances; Z88.0 Allergy status to penicillin; Z88.1 Allergy status to other antibiotic agents
CPT/HCPCS: 92950; 96374; 96375; 99285; U0002